=== PATIENT | male | born 1955 | race Native Hawaiian/Other Pacific Islander ===

== ENCOUNTER 2020-07-27 08:40 | Outpatient (CLI) | payer OTHER | END 2020-07-27 21:55 | disposition home or self-care (01) | LOC: INF 08:40 | PROVIDERS: ATTEND Internal Medicine | DX: Z23 Encounter for immunization (principal) | CPT/HCPCS: 96372 ==

== ENCOUNTER 2020-08-18 08:39 | Outpatient (CLI) | payer OTHER | END 2020-08-18 20:59 | disposition home or self-care (01) | LOC: INF 08:39 | PROVIDERS: ATTEND Internal Medicine | DX: Z23 Encounter for immunization (principal) | CPT/HCPCS: 96372 ==